=== PATIENT | female | born 1960 | race Caucasian/White ===

== ENCOUNTER 2021-11-20 05:20 | Emergency (ER) | payer MEDICARE, OTHER ==
[~2021-11-20] VITALS: Ht 165.1 cm; Wt 95.5 kg
[2021-11-20 06:06] LABS: BASOPHILS % (AUTO) 0.6 % (0.0-2.0); EOSINOPHILS % (AUTO) 1.1 % (1.0-6.0); HEMOGLOBIN 12.7 g/dL (12.0-16.0); LYMPHOCYTES # (AUTO) 1.8 K/uL (1.0-4.8); LYMPHOCYTES % (AUTO) 29.9 % (22.0-44.0); MEAN CORPUSCULAR HEMOGLOBIN 31.9 pg (26.0-34.0); MEAN CORPUSCULAR HGB CONC 33.4 G/dL (31.0-37.0); MEAN CORPUSCULAR VOLUME 96 fL (80-100); MONOCYTES # (AUTO) 0.6 K/uL (0.1-1.0); MONOCYTES % (AUTO) 10.3 % (2.0-9.0); NEUTROPHILS # (AUTO) 3.5 K/uL (1.8-7.7); NEUTROPHILS % (AUTO) 58.1 % (40.0-70.0); PLATELET COUNT (AUTO) 320 K/uL (150-450); RED BLOOD CELL COUNT(AUTO) 3.98 MIL/uL (4.00-5.20); RED CELL DISTRIBUTION WIDTH 11.9 % (11.5-14.5)
[2021-11-20] MEDS ORDERED: LevETIRAcetam 1,000 MG in DEXTROSE 5%-WATER 100 ML IV ONE (06:15)
[2021-11-20 06:41] LABS: ALBUMIN 3.4 g/dL (3.4-5.0); BILIRUBIN,TOTAL 0.1 mg/dL (0.1-1.0); CREATININE 1.17 mg/dL (0.60-1.30); POTASSIUM 4.1 mmol/L (3.5-5.1); TOTAL PROTEIN, SERUM 7.2 g/dL (6.4-8.2)
[2021-11-20 06:46] LABS: CALCIUM, TOTAL 9.2 mg/dL (8.8-10.5)
[2021-11-20 08:23] VITALS: BP 133/62
== END 2021-11-20 10:42 | disposition home or self-care (01) ==
LOC: EMS 05:29
DX: R56.9 Unspecified convulsions (principal); F79 Unspecified intellectual disabilities; Z86.69 Personal history of other diseases of the nervous system and sense organs; Z88.8 Allergy status to other drugs, medicaments and biological substances
CPT/HCPCS: 99285; 96365; 70450; 80053; 84484; 85025; 36415; 93005; J0712; J7060

== ENCOUNTER 2022-07-06 13:52 | Emergency (ER) | payer MEDICARE, OTHER ==
[~2022-07-06] VITALS: Ht 157.5 cm; Wt 76.4 kg
[2022-07-06] MEDS ORDERED: LEVE10006 PO (14:15)
[2022-07-06] MEDS ORDERED: FAMO20 PO (14:15)
[2022-07-06] MEDS ORDERED: ZONI100C87 PO (14:15)
[2022-07-06] MEDS ORDERED: CALC-1271 PO (14:15)
[2022-07-06] MEDS ORDERED: FLUO20CA36 PO (14:15)
[2022-07-06] MEDS ORDERED: CLOB10TA17 PO (14:15)
[2022-07-06] MEDS ORDERED: HYDROCODONE/ACETAMINOPHEN 5-325 MG TABLET PO ONE (14:45)
[2022-07-06] MEDS ORDERED: TRAM-559 PO (17:59)
[2022-07-06 18:15] VITALS: BP 137/84
== END 2022-07-06 18:19 | disposition home or self-care (01) ==
LOC: EMS 14:06
DX: S42.301A Unspecified fracture of shaft of humerus, right arm, initial encounter for closed fracture (principal); Z88.8 Allergy status to other drugs, medicaments and biological substances; W18.30XA Fall on same level, unspecified, initial encounter; Y93.89 Activity, other specified; Y92.89 Other specified places as the place of occurrence of the external cause; Y99.8 Other external cause status
CPT/HCPCS: 99283

== ENCOUNTER 2024-01-23 14:13 | Emergency (ER) | payer MEDICARE, OTHER ==
[~2024-01-23] VITALS: Ht 157.5 cm; Wt 98.0 kg
[~2024-01-23 14:13] MED LIST: CALC-1271 PO; CLOB10TA4 PO; FAMO20 PO; FLUO-418 PO; LEVE10006 PO; TRAM50TA5 PO; ZONI100C87 PO
[2024-01-23 14:21] VITALS: BP 147/84; PULSE 113; RESP 16; TEMP 98.4; O2SAT 98
[2024-01-23] MEDS ORDERED: ZONI100C87 PO (14:31)
[2024-01-23] MEDS ORDERED: CLOB10TA4 PO (14:31)
[2024-01-23] MEDS ORDERED: LEVE250T81 PO (14:31)
[2024-01-23] MEDS ORDERED: [UNRECOGNIZED DRUG - OTHER] PO (14:31)
== END 2024-01-23 15:31 | disposition home or self-care (01) ==
LOC: EMS 14:13
DX: S80.01XA Contusion of right knee, initial encounter (principal); Z88.8 Allergy status to other drugs, medicaments and biological substances; W01.0XXA Fall on same level from slipping, tripping and stumbling without subsequent striking against object, initial encounter; Y93.89 Activity, other specified; Y92.89 Other specified places as the place of occurrence of the external cause; Y99.8 Other external cause status
CPT/HCPCS: 99283

== ENCOUNTER 2024-11-12 19:08 | Emergency (ER) | payer MEDICARE, OTHER ==
[~2024-11-12] VITALS: Ht 165.1 cm; Wt 105.0 kg
[~2024-11-12 19:08] MED LIST changes: +CHOL200059 PO; -CLOB10TA4 PO; +DOCU-385 PO; +LEVE100023 PO; -LEVE10006 PO; +PANT-31 PO; -TRAM50TA5 PO
[2024-11-12 19:21] VITALS: TEMP 98.2
[2024-11-12 21:21] LABS: PLATELET COUNT (AUTO) 341 K/uL (150-450); RED BLOOD CELL COUNT(AUTO) 4.11 MIL/uL (4.00-5.20); RED CELL DISTRIBUTION WIDTH 13.5 % (11.5-14.5); WHITE BLOOD COUNT (AUTO) 10.7 K/uL (4.5-11.0)
[2024-11-12 21:24] LABS: APPEARANCE,URINE CLEAR (CLEAR); GLUCOSE, URINE (UA) NEGATIVE (NEGATIVE); LEUKOCYTE ESTERASE ,URINE LARGE (NEGATIVE); NITRATE,URINE NEGATIVE (NEGATIVE); OCCULT BLOOD,URINE NEGATIVE (NEGATIVE); SPECIFIC GRAVITIY, URINE 1.030 (1.003-1.030)
[2024-11-12 21:27] LABS: CALCIUM, TOTAL 8.1 mg/dL (8.8-10.5); CREATININE 1.1 mg/dL (0.60-1.30); GLOMERULAR FILTR. RATE CALC 50.0 mL/min (>60); GLUCOSE,RANDOM 88.0 mg/dL (70-110); SODIUM SERUM 139.0 mmol/L (136-145); UREA NITROGEN, BLOOD 28.0 mg/dL (7-18)
[2024-11-12 21:49] LABS: SQUAMOUS EPITHELIAL CELL,UR Rare /LPF (None Seen)
[2024-11-12] MEDS: LIDOCAINE 5% TRANSDERMAL PATCH TD ONE (22:32)
[2024-11-12] MEDS: ACETAMINOPHEN 500 MG TABLET PO ONE (22:32)
[2024-11-13 00:30] VITALS: BP 102/65; PULSE 55; RESP 18; O2SAT 98
== END 2024-11-13 01:57 | disposition home or self-care (01) ==
LOC: EMS 19:09
DX: M54.2 Cervicalgia (principal); M25.561 Pain in right knee; F41.9 Anxiety disorder, unspecified; F32.A Depression, unspecified; G40.909 Epilepsy, unspecified, not intractable, without status epilepticus; F79 Unspecified intellectual disabilities; Z79.899 Other long term (current) drug therapy; Z88.8 Allergy status to other drugs, medicaments and biological substances; W05.0XXA Fall from non-moving wheelchair, initial encounter; Y93.89 Activity, other specified; Y92.89 Other specified places as the place of occurrence of the external cause; Y99.8 Other external cause status
CPT/HCPCS: 80048; 81001; 85025; 87086; 99283